=== PATIENT | male | born 1985 | race Caucasian/White ===

== ENCOUNTER 2022-03-26 03:35 | Emergency (ER) | payer BC ==
[~2022-03-26] VITALS: Ht 180.3 cm; Wt 79.4 kg
--- NOTE | 2022-03-26 03:40 | NUR ---
BIBS. MID STERNAL 1/10 CHEST PAIN W/ L ARM NUMBNESS SINCE 0200. ALSO C/O SOB; SATTING AT 99%. PT A/OX4. CONNECTED PT TO POX AND MONITOR. SAFETY MEASURES IN PLACE
--- NOTE | 2022-03-26 04:03 | NUR ---
RAC #18G S/L BLOOD COLLECTED AND SENT TO LAB
--- NOTE | 2022-03-26 04:22 | NUR ---
MERCHANDISE EXECUTION LEADER AT PT'S BEDSIDE
[2022-03-26 04:39] LABS: BASOPHILS % (AUTO) 0.7 % (0.0-2.0); EOSINOPHILS % (AUTO) 5.3 % (0.0-6.0); HEMATOCRIT 41 % (39-51); HEMOGLOBIN 13.8 g/dL (13.5-17.5); LYMPHOCYTES # (AUTO) 2.7 K/uL (0.8-4.8); LYMPHOCYTES % (AUTO) 47.4 % (20.0-44.0); MEAN CORPUSCULAR HGB CONC 34 g/dl (31.0-36.0); MEAN CORPUSCULAR VOLUME 89 fL (80-96); MONOCYTES # (AUTO) 0.6 K/uL (0.1-1.30); MONOCYTES % (AUTO) 10.3 % (2.0-12.0); NEUTROPHILS % (AUTO) 36.3 % (43.0-81.0); PLATELET COUNT (AUTO) 284 K/uL (150-450); RED BLOOD CELL COUNT(AUTO) 4.54 MIL/uL (4.5-6.0); WHITE BLOOD COUNT (AUTO) 5.6 K/uL (4.3-11.0)
[2022-03-26 04:58] LABS: CALCIUM, SERUM 8.9 mg/dL (8.5-10.1); CARBON DIOXIDE 30 mmol/L (21-32); CHLORIDE 106 mmol/L (98-107); CREATININE 0.9 mg/dL (0.6-1.3); GLUCOSE 116 mg/dL (74-106); POTASSIUM 3.7 mmol/L (3.5-5.1); SODIUM SERUM 142 mmol/L (136-145); UREA NITROGEN, BLOOD 17 mg/dL (7-18)
--- NOTE | 2022-03-26 05:39 | NUR ---
Patient discharged to home in stable condition. Written and verbal after care instructions given. Patient verbalizes understanding of instruction. IV removed. Catheter intact and site benign. Pressure and 4x4 applied to site. No bleeding noted. PT ambulatory with a steady gait
[2022-03-26 05:40] VITALS: BP 141/97
== END 2022-03-26 05:41 | disposition home or self-care (01) ==
LOC: ER 03:39
DX: R07.89 Other chest pain (principal)
CPT/HCPCS: 36415; 71045-TC; 80048-TC; 84484-TC; 85025-TC

== ENCOUNTER 2023-08-18 05:09 | Emergency (ER) | payer BC ==
[~2023-08-18] VITALS: Ht 180.3 cm; Wt 80.7 kg
[2023-08-18] VITALS (9 sets, daily range): BP systolic 135; BP diastolic 72; TEMP 98; O2SAT 97–100
[2023-08-18] MEDS ORDERED: ALBUTEROL FS 2.5 MG/3 ML VIAL.NEB ONE ×2 (05:27→05:54)
[2023-08-18] MEDS ORDERED: IPRATROPIUM NEB FS 0.5 MG/2.5 ML AMPUL.NEB ONE ×2 (05:27→05:54)
[2023-08-18] MEDS ORDERED: IPRATROPIUM NEB FS 0.5 MG/2.5 ML AMPUL.NEB NEB ONE ×2 (05:30→06:00)
[2023-08-18] MEDS ORDERED: predniSONE 20 MG TABLET PO ONE (05:30)
[2023-08-18] MEDS ORDERED: ALBUTEROL FS 2.5 MG/3 ML VIAL.NEB NEB ONE (05:30)
[2023-08-18] MEDS ORDERED: predniSONE 20 MG TABLET ONE (05:38)
[2023-08-18] MEDS ORDERED: ALBUTEROL FS 2.5 MG/3 ML VIAL.NEB CONTNEB ONE (06:00)
[2023-08-18] MEDS ORDERED: LEVA15HF4 INH (06:06)
[2023-08-18] MEDS ORDERED: PRED50TA PO (06:06)
[2023-08-18] MEDS ORDERED: ALBU1.257 NEB (06:06)
== END 2023-08-18 06:22 | disposition home or self-care (01) ==
LOC: ER 05:09
DX: J45.901 Unspecified asthma with (acute) exacerbation (principal); Z79.899 Other long term (current) drug therapy; Z60.2 Problems related to living alone
CPT/HCPCS: 99283; 94640 ×2; J7512